=== PATIENT | female | born 1965 | race Caucasian/White ===

== ENCOUNTER 2017-08-22 13:47 | Inpatient (IN) | payer BC ==
[~2017-08-22] VITALS: Ht 154.9 cm; Wt 88.9 kg
[2017-08-22 14:27] LABS: ADD MIUA? YES; BILIRUBIN NEGATIVE; BLOOD SMALL; COLOR YELLOW ((YELLOW)); GLUCOSE (STRIP) NEGATIVE; KETONES NEGATIVE; LEUKOCYTES MODERATE; NITRITE NEGATIVE; PROTEIN (STRIP) 30
[2017-08-22 14:40] LABS: BACTERIA RARE /HPF; EPITHELIAL CELLS 1+ /HPF; MUCUS TRACE /LPF; RED BLOOD CELLS 15-20 /HPF (0-5); UCUL ADDED? YES; WHITE BLOOD CELLS TNTC /HPF (0-5)
[2017-08-22 14:47] LABS: HEMATOCRIT 36.1 % (36.0-46.0); MCHC 33.8 G/DL (30.0-36.0); MCV 82.8 FL (83-99); PLATELET COUNT 329 K/uL (156-360); RBC DIS.WIDTH-CV 13.6 % (11.8-14.6); RED BLOOD COUNT 4.36 M/uL (3.80-5.20); WHITE BLOOD COUNT 10.2 K/uL (4.1-10.2)
[2017-08-22 14:56] LABS: CHLORIDE 99 mEq/L (99-109); POTASSIUM 3.7 mEq/L (3.7-5.4); SODIUM 134 mEq/L (136-147)
[2017-08-22 14:58] LABS: GLUCOSE 124 mg/dL (70-99)
[2017-08-22 14:59] LABS: ANION GAP 12 MEQ/L (2-14)
[2017-08-22 15:00] LABS: TOTAL BILIRUBIN 1.1 mg/dL (0.0-1.0)
[2017-08-22 15:01] LABS: ALKALINE PHOSPHATASE 74 IU/L (3-129)
[2017-08-22 15:02] LABS: GFR ESTIMATE (CALCULATED) > 59 mL/min/
[2017-08-22 15:03] LABS: UREA NITROGEN (BUN) 13 mg/dL (9-23)
[2017-08-22 15:11] LABS: QUANTITATIVE HCG < 4.0 MIU/ML
[2017-08-22] MEDS ORDERED: TOPROL XL50 MG PO (16:55)
[2017-08-22] MEDS ORDERED: DYAZIDE, MA1 CAPSULE PO (16:55)
[2017-08-22 18:21] VITALS: BP 143/80
[2017-08-22 22:42] VITALS: BP 140/74
[2017-08-23 06:41] LABS: HEMATOCRIT 35.2 % (36.0-46.0); MCH 28.6 PG (29.0-34.0); MCHC 33.8 G/DL (30.0-36.0); MCV 84.6 FL (83-99); MEAN PLAT.VOLUME 9.4 uM^3 (9.5-12.4); PLATELET COUNT 329 K/uL (156-360); RBC DIS.WIDTH-CV 13.9 % (11.8-14.6); RBC DIS.WIDTH-SD 43.1 % (39-53); RED BLOOD COUNT 4.16 M/uL (3.80-5.20); WHITE BLOOD COUNT 9.7 K/uL (4.1-10.2)
[2017-08-23 07:06] LABS: ANION GAP 10 MEQ/L (2-14); CHLORIDE 101 MEQ/L (99-109); GFR ESTIMATE (CALCULATED) > 59 mL/min/; GLUCOSE 139 mg/dL (70-99); POTASSIUM 3.9 MEQ/L (3.7-5.4); SAMPLE HEMOLYSIS CHECK 0; SAMPLE ICTERIC CHECK 0; SAMPLE LIPEMIA CHECK 0; SODIUM 137 MEQ/L (136-147); UREA NITROGEN (BUN) 9 mg/dL (9-23)
[2017-08-23 07:18] VITALS: BP 123/78
[2017-08-23] MEDS ORDERED: CIPRO500 MG PO (10:25)
[2017-08-23] MEDS ORDERED: DYAZIDE, MA1 CAPSULE PO (12:06)
== END 2017-08-23 12:39 | disposition home or self-care (01) | DRG 690 ==
LOC: EME 13:47 → EDOF 16:36 → ENRESERV 16:37 → 5EAST 17:55 → ENPENDDIS 08-23 → 5EAST 08-23 12:39
PROVIDERS: Internal Medicine; Physician Assistant Medical
DX: N10 Acute pyelonephritis (principal); I10 Essential (primary) hypertension; R16.2 Hepatomegaly with splenomegaly, not elsewhere classified
CPT/HCPCS: 74177; 80048; 80053; 81003; 84702; 85027; 87040; 87077; 87086; 87186; 99281; 99284; J0696; J7030; J7050